=== PATIENT | female | born 1970 | race Caucasian/White ===

== ENCOUNTER 2018-07-27 23:47 | Emergency (ER) | payer SELFPAY ==
[~2018-07-27] VITALS: Ht 154.9 cm; Wt 91.0 kg
[2018-07-28] MEDS ORDERED: LIDOCAINE 1%/EPI 1:100,000 10 ML VIAL IJ ONE (02:15)
[2018-07-28 02:52] VITALS: BP 147/92
[2018-07-28] MEDS: MORPHINE SULFATE 10 MG/ML CPJ IM ONE (02:52)
[2018-07-28] MEDS: ONDANSETRON 4MG ODT PO ONE (02:52)
[2018-07-28] MEDS: LIDOCAINE HCL/EPINEPHRINE 1%-EPI 1:100,000 20 ML VIAL INFIL NR (02:54)
[2018-07-28] MEDS: BACITRACIN ZINC OINT UDPKT TOP ONE (02:54)
== END 2018-07-28 04:06 | disposition home or self-care (01) ==
LOC: ER 23:47
DX: N75.0 Cyst of Bartholin's gland (principal); Z98.890 Other specified postprocedural states
CPT/HCPCS: 56420; 96372; 99284; J2270; J3490; Q0162; Z7610